=== PATIENT | female | born 1965 | race Caucasian/White ===

== ENCOUNTER 2020-12-18 10:13 | Emergency (ER) | payer MEDICARE, SELFPAY ==
[2020-12-18] VITALS (20 sets, daily range): BP systolic 92–138; BP diastolic 57–73; PULSE 71–91; RESP 18–24; TEMP 36.6; O2SAT 90–98; BMI 40.3
[2020-12-18 11:13] LABS: COVID19 -Nasal RAPID Negative (Negative)
--- NOTE | 2020-12-18 11:41 | DI.RAD.S_ITS ---
PROCEDURE: XR CHEST 1V INDICATIONS: dyspnea TECHNIQUE: One view of the chest was acquired. COMPARISON: None. FINDINGS: Surgical changes and devices: None. Lungs and pleura: No pleural effusions or pneumothorax. Consolidative opacity in the retrocardiac left lower lobe. There are patchy medial right lower lobe opacities. Mediastinum: Mediastinal contours appear normal. Heart size is normal. Bones and chest wall: No suspicious bony lesions. Overlying soft tissues appear unremarkable. IMPRESSION: Bibasilar patchy consolidative opacities suggestive of pneumonia, versus aspiration/atelectasis. If there is persistent clinical diagnostic uncertainty, continued surveillance with short interval radiographic followup after treatment is recommended. Dictated by: Spike De Luna M.D. on 12/18/2020 at 11:47 Approved by: Spike De Luna M.D. on 12/18/2020 at 11:49
[2020-12-18 12:16] LABS: Add Manual Diff / Slide Review NO; Basophils Absolute Auto 0 /uL (0-100); Basophils Percent Auto 0.6 % (0-2); Eosinophils Absolute Auto 200 /uL (0-450); Eosinophils Percent Auto 2.5 % (2-4); Hematocrit 44.5 % (36-46); Hemoglobin 14.4 g/dL (12.0-16.0); Lymphocytes Absolute Auto 2300 /uL (1100-4500); Lymphocytes Percent Auto 30.7 % (25-40); Mean Corpuscular HGB Conc 32.4 % (30-36); Mean Corpuscular Hemoglobin 30.4 PG (26-34); Mean Corpuscular Volume 93.8 fL (80-100); Monocytes Absolute Auto 400 /uL (0-900); Neutrophils Absolute Auto 4400 /uL (1500-7000); Neutrophils Percent Auto 60.2 % (50-75); Platelet Count 259 X10^3/uL (150-400); Red Blood Cell Count 4.75 X10^6/uL (4.0-5.2); Red Cell Distribution Width 14.2 % (11.6-14.8); White Blood Cell Count 7.4 X10^3/uL (4.5-11.0)
[2020-12-18 12:22] LABS: Alanine Aminotransferase 63 IU/L (<35); Albumin 4.3 g/dL (3.5-5.0); Albumin Globulin Ratio 1.4 (1.0-2.8); Alkaline Phosphatase 62 U/L (38-126); Aspartate Aminotransferase 57 IU/L (14-36); BUN Creatinine Ratio 23.8 (6-22); Bilirubin Total 0.3 mg/dL (0.2-1.3); Blood Urea Nitrogen 15 mg/dL (7-17); Calcium 11.1 mg/dL (8.4-10.2); Carbon Dioxide 26 mmol/L (22-32); Chloride 104 mmol/L (98-107); Estimated Glomerular Filt Rate > 60.0 mL/min (>60); Glucose 164 mg/dL (70-100); HEMOLYSIS 23 (0-50); Sodium 138 mmol/L (137-145); Total Protein 7.3 g/dL (6.3-8.2)
[2020-12-18 12:23] LABS: Lactate (Lactic Acid) 3.5 mmol/L (0.7-2.1)
[2020-12-18 12:38] LABS: Procalcitonin 0.05 ng/mL (<0.5)
[2020-12-18 12:53] LABS: NT-proBNP (BNP-Adult 18+) < 11 pg/mL (<125)
--- NOTE | 2020-12-18 13:20 | DI.CT.S_ITS ---
PROCEDURE: CT LUMBAR SPINE WO CON INDICATIONS: Trauma, pain TECHNIQUE: Noncontrast 3 mm thick sections acquired from the T12 level to the sacrum. Sagittal and coronal reformats were constructed. For radiation dose reduction, the following was used: automated exposure control. COMPARISON: None. FINDINGS: Image quality: Excellent. Bones: There is normal bony alignment. No acute vertebral body compression fractures. No suspicious lytic or blastic bony lesions. No pars defects. At the disc spaces, there is degenerative disc disease and arthropathy at L3-4, L4-5 and L5-S1 resulting in moderate central stenosis at L4-5 and L5-S1 as well as effacement of the left lateral recess at L5-S1. Hypertrophic facet joints results in moderate bilateral L5-S1 foraminal stenosis. Soft tissues: No retroperitoneal masses or hematomas. Visualized aorta is normal in caliber. IMPRESSION: 1. No evidence of fracture or traumatic malalignment. 2. Multilevel degenerative disc disease and arthropathy results in moderate central stenosis at L4-5 and L5-S1. Approved by: Rafita Engel M.D. on 12/18/2020 at 13:47
[2020-12-18 14:13] LABS: Reflexed Lactate in 2 Hours Y
[2020-12-18 14:28] LABS: RBC Urine None Seen (0-5/HPF)
[2020-12-18 14:36] LABS: Bacteria Urine Many (>30); Culture Indicated Urine Specimen Cultured; WBC Urine 10-30/HPF (0-5/HPF)
[2020-12-18] MEDS: SODIUM CHLORIDE 0.9% 500 ML 1000 ML IV (14:47)
--- NOTE | 2020-12-18 14:49 | ED.SOB ---
HPI - SOB/Dyspnea <Abhishek Vaughan PA-C - Last Filed: 12/19/20 12:01> General Chief Complaint: Shortness of Breath/Dyspnea Stated Complaint: difficulty breathing/tachypnea Time Seen by Provider: 12/18/20 10:29 Source: patient and EMS Mode of arrival: EMS Limitations: no limitations History of Present Illness HPI Narrative: Emeterio presents today with chief complaint of shortness of breath. She reports that she was in a phone appointment with her doctor's office who recommended that she come into the emergency department because she was sounding out of breath. Patient denies any significant shortness of breath, chest tightness, chest pain, unexpected weight changes, nausea, diaphoresis, decreased exercise capacity, or any other acute concerns or complaints at this time. She had a fall yesterday which caused her to fall onto her left knee and hip. She was seen at the urgent care in [place] yesterday. X-rays were done of her left knee, lumbar spine. Radiologist reported possible fracture at L4 level and recommended further imaging. Patient was calling her doctor his office today to try and schedule that imaging when the triage nurse recommended that she come here. Patient is vaccinated for COVID. She denies any known sick contacts. She denies any significant history of smoking or lung disease. She has no other acute concerns or complaints at this time. Related Data Allergies Allergy/AdvReac Type Severity Reaction Status Date / Time aspirin [From Fiorinal] Allergy Mild Verified 12/18/20 10:37 butalbital [From Fiorinal] Allergy Mild Verified 12/18/20 10:37 caffeine [From Fiorinal] Allergy Mild Verified 12/18/20 10:37 morphine Allergy Mild Verified 12/18/20 10:37 Review of Systems <Abhishek Vaughan PA-C - Last Filed: 12/19/20 12:01> Review of Systems Narrative: As per HPI Patient History <Abhishek Vaughan PA-C - Last Filed: 12/19/20 12:01> Medical History ADHD Bipolar 1 disorder Hyperlipidemia Hypertension Type 2 diabetes mellitus Surgical History No pertinent past surgical history Social History Smoking Status: Never smoker alcohol intake: current (rare) substance use type: does not use Smoking Status: Never smoker Substance Use Type: does not use Exam <Abhishek Vaughan PA-C - Last Filed: 12/19/20 12:01> Narrative Exam Narrative: Exam Narrative: Const General: cooperative, healthy appearing, comfortable, no acute distress, well developed and well groomed Nutritional Appearance: Elevated BMI Orientation: alert and oriented x3 HENMT Head: normal to inspection and atraumatic Ears: hearing grossly normal bilaterally Nose: external nose normal and nares normal Face and sinus: normal facial exam Neck Neck: normal visual inspection and supple Resp Effort & Inspection: normal respiratory effort, able to speak in complete sentences, no audible wheezes, not labored, no nasal flaring and no respiratory distress Neuro General: alert, oriented x3, gait normal, tone normal and moves all extremities Cognition: normal cognition Speech: speech normal Gait: normal gait Psych Appearance: grossly normal and well kempt Mental Status: mental status grossly normal Speech and Movement: speech and movement normal Mood: congruent mood Affect: normal affect Initial Vital Signs Initial Vital Signs: Vital Signs Temperature 97.9 F 12/18/20 10:20 Pulse Rate 91 H 12/18/20 10:20 Respiratory Rate 24 12/18/20 10:20 Blood Pressure 114/63 12/18/20 10:20 Pulse Oximetry 93 12/18/20 10:20 <Raquel Deal DO - Last Filed: 12/23/20 07:32> Initial Vital Signs Initial Vital Signs: Vital Signs Temperature 97.9 F 12/18/20 10:20 Pulse Rate 91 H 12/18/20 10:20 Respiratory Rate 24 12/18/20 10:20 Blood Pressure 114/63 12/18/20 10:20 Pulse Oximetry 93 12/18/20 10:20 Course <Abhishek Vaughan PA-C - Last Filed: 12/19/20 12:01> Orders Ordered: Discontinued Medications Azithromycin (Azithromycin 250 Mg Tablet) 500 mg PO NOW ONE Stop: 12/18/20 16:20 Last Admin: 12/18/20 16:41 Dose: 500 mg Documented by: GIRMA Sodium Chloride (Normal Saline 0.9%) 500 mls @ 1,000 mls/hr IV BOLUS ONE Stop: 12/18/20 15:12 Last Infusion: 12/18/20 15:13 Dose: 0 mls/hr Documented by: Admin: 12/18/20 14:47 Dose: 1,000 mls/hr Documented by: GIRMA Sodium Chloride (Normal Saline 0.9%) 1,000 mls @ 1,000 mls/hr IV BOLUS ONE Stop: 12/18/20 16:16 Last Infusion: 12/18/20 18:03 Dose: 0 mls/hr Documented by: Admin: 12/18/20 16:37 Dose: 1,000 mls/hr Documented by: GIRMA Ceftriaxone Sodium 2,000 mg/ (Sodium Chloride) 100 mls @ 200 mls/hr IV NOW ONE Stop: 12/18/20 15:39 Last Infusion: 12/18/20 16:39 Dose: 0 mls/hr Documented by: Admin: 12/18/20 16:07 Dose: 200 mls/hr Documented by: GIRMA Azithromycin 500 mg/ Dextrose 250 mls @ 250 mls/hr IV NOW ONE Stop: 12/18/20 15:39 Last Admin: 12/18/20 16:31 Dose: Not Given Documented by: GIRMA Ketorolac Tromethamine (Ketorolac 30 Mg/Ml Vial) 30 mg IV NOW ONE Stop: 12/18/20 15:49 Last Admin: 12/18/20 16:07 Dose: 30 mg Documented by: GIRMA Vital Signs Vital signs: Vital Signs - 8 hr 12/18/20 11:30 12/18/20 12:00 12/18/20 12:30 Pulse Rate 81 81 75 Respiratory Rate Blood Pressure 120/59 L 103/58 L 115/63 Pulse Oximetry 94 96 96 12/18/20 12:51 12/18/20 13:00 12/18/20 14:20 Pulse Rate 78 76 79 Respiratory Rate Blood Pressure 105/65 106/66 Pulse Oximetry 97 96 93 12/18/20 14:30 12/18/20 15:00 12/18/20 15:30 Pulse Rate 77 77 71 Respiratory Rate Blood Pressure 92/59 L 117/71 Pulse Oximetry 91 90 L 98 12/18/20 15:31 12/18/20 16:00 12/18/20 16:29 Pulse Rate 72 78 90 Respiratory Rate Blood Pressure 122/63 121/67 134/68 Pulse Oximetry 95 94 96 12/18/20 16:30 12/18/20 17:39 12/18/20 17:40 Pulse Rate 78 84 81 Respiratory Rate Blood Pressure 136/73 Pulse Oximetry 97 95 96 12/18/20 18:00 12/18/20 18:30 Pulse Rate 80 79 Respiratory Rate 18 18 Blood Pressure 136/73 138/67 Pulse Oximetry 93 94 <Raquel Deal, DO - Last Filed: 12/23/20 07:32> Orders Ordered: Discontinued Medications Azithromycin (Azithromycin 250 Mg Tablet) 500 mg PO NOW ONE Stop: 12/18/20 16:20 Last Admin: 12/18/20 16:41 Dose: 500 mg Documented by: GIRMA Sodium Chloride (Normal Saline 0.9%) 500 mls @ 1,000 mls/hr IV BOLUS ONE Stop: 12/18/20 15:12 Last Infusion: 12/18/20 15:13 Dose: 0 mls/hr Documented by: Admin: 12/18/20 14:47 Dose: 1,000 mls/hr Documented by: GIRMA Sodium Chloride (Normal Saline 0.9%) 1,000 mls @ 1,000 mls/hr IV BOLUS ONE Stop: 12/18/20 16:16 Last Infusion: 12/18/20 18:03 Dose: 0 mls/hr Documented by: Admin: 12/18/20 16:37 Dose: 1,000 mls/hr Documented by: GIRMA Ceftriaxone Sodium 2,000 mg/ (Sodium Chloride) 100 mls @ 200 mls/hr IV NOW ONE Stop: 12/18/20 15:39 Last Infusion: 12/18/20 16:39 Dose: 0 mls/hr Documented by: Admin: 12/18/20 16:07 Dose: 200 mls/hr Documented by: GIRMA Azithromycin 500 mg/ Dextrose 250 mls @ 250 mls/hr IV NOW ONE Stop: 12/18/20 15:39 Last Admin: 12/18/20 16:31 Dose: Not Given Documented by: GIRMA Ketorolac Tromethamine (Ketorolac 30 Mg/Ml Vial) 30 mg IV NOW ONE Stop: 12/18/20 15:49 Last Admin: 12/18/20 16:07 Dose: 30 mg Documented by: GIRMA Vital Signs Vital signs: Vital Signs - 8 hr 12/18/20 11:30 12/18/20 12:00 12/18/20 12:30 Pulse Rate 81 81 75 Respiratory Rate Blood Pressure 120/59 L 103/58 L 115/63 Pulse Oximetry 94 96 96 12/18/20 12:51 12/18/20 13:00 12/18/20 14:20 Pulse Rate 78 76 79 Respiratory Rate Blood Pressure 105/65 106/66 Pulse Oximetry 97 96 93 12/18/20 14:30 12/18/20 15:00 12/18/20 15:30 Pulse Rate 77 77 71 Respiratory Rate Blood Pressure 92/59 L 117/71 Pulse Oximetry 91 90 L 98 12/18/20 15:31 12/18/20 16:00 12/18/20 16:29 Pulse Rate 72 78 90 Respiratory Rate Blood Pressure 122/63 121/67 134/68 Pulse Oximetry 95 94 96 12/18/20 16:30 12/18/20 17:39 12/18/20 17:40 Pulse Rate 78 84 81 Respiratory Rate Blood Pressure 136/73 Pulse Oximetry 97 95 96 12/18/20 18:00 12/18/20 18:30 Pulse Rate 80 79 Respiratory Rate 18 18 Blood Pressure 136/73 138/67 Pulse Oximetry 93 94 MDM - SOB/Dyspnea <Abhishek Vaughan PA-C - Last Filed: 12/19/20 12:01> Lab Data Result diagrams: 12/18/20 12:00 12/18/20 12:00 Labs: Lab Results 12/18/20 12/18/20 12/18/20 Range/Units 10:26 10:36 12:00 WBC 7.4 (4.5-11.0) X10^3/uL RBC 4.75 (4.0-5.2) X10^6/uL Hgb 14.4 (12.0-16.0) g/dL Hct 44.5 (36-46) % MCV 93.8 (80-100) fL MCH 30.4 (26-34) PG MCHC 32.4 (30-36) % RDW 14.2 (11.6-14.8) % Plt Count 259 (150-400) X10^3/uL Neut % (Auto) 60.2 (50-75) % Lymph % (Auto) 30.7 (25-40) % [place] % (Auto) 6.0 (3-14) % Eos % (Auto) 2.5 (2-4) % Baso % (Auto) 0.6 (0-2) % Neut # (Auto) 4400 (2214-0575) /uL Lymph # (Auto) 2300 (8835-8497) /uL [place] # (Auto) 400 (0-900) /uL Eos # (Auto) 200 (0-450) /uL Baso # (Auto) 0 (0-100) /uL Sodium (137-145) mmol/L Potassium (3.4-5.1) mmol/L Chloride (98-107) mmol/L Carbon Dioxide (22-32) mmol/L BUN (7-17) mg/dL Creatinine (0.52-1.04) mg/dL Estimated GFR (>60) mL/min BUN/Creatinine Ratio (6-22) Glucose (70-100) mg/dL Lactate (0.7-2.1) mmol/L Calcium (8.4-10.2) mg/dL Total Bilirubin (0.2-1.3) mg/dL AST (14-36) IU/L ALT (<35) IU/L Alkaline Phosphatase (38-126) U/L NT-Pro-B Natriuret Pep < 11 (<125) pg/mL Total Protein (6.3-8.2) g/dL Albumin (3.5-5.0) g/dL Globulin (1.7-4.1) g/dL Albumin/Globulin Ratio (1.0-2.8) Procalcitonin (<0.5) ng/mL Urine RBC (0-5/HPF) Urine WBC (0-5/HPF) Urine Bacteria (None) Ur Culture Indicated? SARS-CoV-2 (PCR) Negative (Negative) 12/18/20 12/18/20 12/18/20 Range/Units 12:00 12:00 12:00 WBC (4.5-11.0) X10^3/uL RBC (4.0-5.2) X10^6/uL Hgb (12.0-16.0) g/dL Hct (36-46) % MCV (80-100) fL MCH (26-34) PG MCHC (30-36) % RDW (11.6-14.8) % Plt Count (150-400) X10^3/uL Neut % (Auto) (50-75) % Lymph % (Auto) (25-40) % [place] % (Auto) (3-14) % Eos % (Auto) (2-4) % Baso % (Auto) (0-2) % Neut # (Auto) (0025-0612) /uL Lymph # (Auto) (4695-1954) /uL [place] # (Auto) (0-900) /uL Eos # (Auto) (0-450) /uL Baso # (Auto) (0-100) /uL Sodium 138 (137-145) mmol/L Potassium 4.0 (3.4-5.1) mmol/L Chloride 104 (98-107) mmol/L Carbon Dioxide 26 (22-32) mmol/L BUN 15 (7-17) mg/dL Creatinine 0.63 (0.52-1.04) mg/dL Estimated GFR > 60.0 (>60) mL/min BUN/Creatinine Ratio 23.8 H (6-22) Glucose 164 H (70-100) mg/dL Lactate 3.5 H (0.7-2.1) mmol/L Calcium 11.1 H (8.4-10.2) mg/dL Total Bilirubin 0.3 (0.2-1.3) mg/dL AST 57 H (14-36) IU/L ALT 63 H (<35) IU/L Alkaline Phosphatase 62 (38-126) U/L NT-Pro-B Natriuret Pep (<125) pg/mL Total Protein 7.3 (6.3-8.2) g/dL Albumin 4.3 (3.5-5.0) g/dL Globulin 3.0 (1.7-4.1) g/dL Albumin/Globulin Ratio 1.4 (1.0-2.8) Procalcitonin 0.05 (<0.5) ng/mL Urine RBC (0-5/HPF) Urine WBC (0-5/HPF) Urine Bacteria (None) Ur Culture Indicated? SARS-CoV-2 (PCR) (Negative) 12/18/20 12/18/20 12/18/20 Range/Units 13:37 14:30 15:07 WBC (4.5-11.0) X10^3/uL RBC (4.0-5.2) X10^6/uL Hgb (12.0-16.0) g/dL Hct (36-46) % MCV (80-100) fL MCH (26-34) PG MCHC (30-36) % RDW (11.6-14.8) % Plt Count (150-400) X10^3/uL Neut % (Auto) (50-75) % Lymph % (Auto) (25-40) % [place] % (Auto) (3-14) % Eos % (Auto) (2-4) % Baso % (Auto) (0-2) % Neut # (Auto) (1512-7478) /uL Lymph # (Auto) (1222-6083) /uL [place] # (Auto) (0-900) /uL Eos # (Auto) (0-450) /uL Baso # (Auto) (0-100) /uL Sodium (137-145) mmol/L Potassium (3.4-5.1) mmol/L Chloride (98-107) mmol/L Carbon Dioxide (22-32) mmol/L BUN (7-17) mg/dL Creatinine (0.52-1.04) mg/dL Estimated GFR (>60) mL/min BUN/Creatinine Ratio (6-22) Glucose (70-100) mg/dL Lactate 2.0 (0.7-2.1) mmol/L Calcium (8.4-10.2) mg/dL Total Bilirubin (0.2-1.3) mg/dL AST (14-36) IU/L ALT (<35) IU/L Alkaline Phosphatase (38-126) U/L NT-Pro-B Natriuret Pep (<125) pg/mL Total Protein (6.3-8.2) g/dL Albumin (3.5-5.0) g/dL Globulin (1.7-4.1) g/dL Albumin/Globulin Ratio (1.0-2.8) Procalcitonin (<0.5) ng/mL Urine RBC None seen (0-5/HPF) Urine WBC 10-30/hpf H (0-5/HPF) Urine Bacteria Many (>30) H (None) Ur Culture Indicated? Specimen cultured SARS-CoV-2 (PCR) Negative (Negative) Urine Dip Bedside Urine Glucose Negative Bedside Urine Bilirubin - Negative Bedside Urine Ketone - Negative Urine Specific Kelly 1.020 Bedside Urine Occult Blood - Negative Bedside Urine pH 6 Bedside Urine Protein - Negative Bedside Urine Urobilinogen - Negative Bedside Urine Nitrite - Negative Bedside Urine Leukocytes ++ 125 Esterase MDM Narrative Medical decision making narrative: Patient had an elevated lactic and has a lower a normal oxygen saturation. She does not have any other significant signs or symptoms that would suggest septic infection. She has evidence of bilateral pneumonia with COVID negative PCR and a urine that is concerning for urinary tract infection. After discussing her positive urine results she did admit to increased frequency of urination, burning with urination and increased urgency to urinate over the last 3 days. I discussed with the pharmacist with the best antibiotic choice would be to treat both and levofloxacin was chosen. Risks of a fluoroquinolone was discussed with the patient. She has history of peripheral neuropathy and takes gabapentin but this still is likely the best antibiotic for her. I spoke with the hospitalist and he suggested outpatient management versus inpatient management. Patient is ambulatory without significant difficulty and takes p.o. without difficulty. She has a roommate that she is staying with and reports that she feels safe to go home. Strict return precautions were discussed. Patient verbalizes understanding and agrees to plan and has no further concerns at this time. Thank you A [id number] system was used with the dictation of this note. Please disregard any spelling or grammatical errors. <Raquel Deal, DO - Last Filed: 12/23/20 07:32> Lab Data Labs: Lab Results 12/18/20 12/18/20 12/18/20 Range/Units 10:26 10:36 12:00 WBC 7.4 (4.5-11.0) X10^3/uL RBC 4.75 (4.0-5.2) X10^6/uL Hgb 14.4 (12.0-16.0) g/dL Hct 44.5 (36-46) % MCV 93.8 (80-100) fL MCH 30.4 (26-34) PG MCHC 32.4 (30-36) % RDW 14.2 (11.6-14.8) % Plt Count 259 (150-400) X10^3/uL Neut % (Auto) 60.2 (50-75) % Lymph % (Auto) 30.7 (25-40) % [place] % (Auto) 6.0 (3-14) % Eos % (Auto) 2.5 (2-4) % Baso % (Auto) 0.6 (0-2) % Neut # (Auto) 4400 (1339-0106) /uL Lymph # (Auto) 2300 (1168-2837) /uL [place] # (Auto) 400 (0-900) /uL Eos # (Auto) 200 (0-450) /uL Baso # (Auto) 0 (0-100) /uL Sodium (137-145) mmol/L Potassium (3.4-5.1) mmol/L Chloride (98-107) mmol/L Carbon Dioxide (22-32) mmol/L BUN (7-17) mg/dL Creatinine (0.52-1.04) mg/dL Estimated GFR (>60) mL/min BUN/Creatinine Ratio (6-22) Glucose (70-100) mg/dL Lactate (0.7-2.1) mmol/L Calcium (8.4-10.2) mg/dL Total Bilirubin (0.2-1.3) mg/dL AST (14-36) IU/L ALT (<35) IU/L Alkaline Phosphatase (38-126) U/L NT-Pro-B Natriuret Pep < 11 (<125) pg/mL Total Protein (6.3-8.2) g/dL Albumin (3.5-5.0) g/dL Globulin (1.7-4.1) g/dL Albumin/Globulin Ratio (1.0-2.8) Procalcitonin (<0.5) ng/mL Urine RBC (0-5/HPF) Urine WBC (0-5/HPF) Urine Bacteria (None) Ur Culture Indicated? SARS-CoV-2 (PCR) Negative (Negative) 12/18/20 12/18/20 12/18/20 Range/Units 12:00 12:00 12:00 WBC (4.5-11.0) X10^3/uL RBC (4.0-5.2) X10^6/uL Hgb (12.0-16.0) g/dL Hct (36-46) % MCV (80-100) fL MCH (26-34) PG MCHC (30-36) % RDW (11.6-14.8) % Plt Count (150-400) X10^3/uL Neut % (Auto) (50-75) % Lymph % (Auto) (25-40) % [place] % (Auto) (3-14) % Eos % (Auto) (2-4) % Baso % (Auto) (0-2) % Neut # (Auto) (5832-1149) /uL Lymph # (Auto) (5890-5742) /uL [place] # (Auto) (0-900) /uL Eos # (Auto) (0-450) /uL Baso # (Auto) (0-100) /uL Sodium 138 (137-145) mmol/L Potassium 4.0 (3.4-5.1) mmol/L Chloride 104 (98-107) mmol/L Carbon Dioxide 26 (22-32) mmol/L BUN 15 (7-17) mg/dL Creatinine 0.63 (0.52-1.04) mg/dL Estimated GFR > 60.0 (>60) mL/min BUN/Creatinine Ratio 23.8 H (6-22) Glucose 164 H (70-100) mg/dL Lactate 3.5 H (0.7-2.1) mmol/L Calcium 11.1 H (8.4-10.2) mg/dL Total Bilirubin 0.3 (0.2-1.3) mg/dL AST 57 H (14-36) IU/L ALT 63 H (<35) IU/L Alkaline Phosphatase 62 (38-126) U/L NT-Pro-B Natriuret Pep (<125) pg/mL Total Protein 7.3 (6.3-8.2) g/dL Albumin 4.3 (3.5-5.0) g/dL Globulin 3.0 (1.7-4.1) g/dL Albumin/Globulin Ratio 1.4 (1.0-2.8) Procalcitonin 0.05 (<0.5) ng/mL Urine RBC (0-5/HPF) Urine WBC (0-5/HPF) Urine Bacteria (None) Ur Culture Indicated? SARS-CoV-2 (PCR) (Negative) 12/18/20 12/18/20 12/18/20 Range/Units 13:37 14:30 15:07 WBC (4.5-11.0) X10^3/uL RBC (4.0-5.2) X10^6/uL Hgb (12.0-16.0) g/dL Hct (36-46) % MCV (80-100) fL MCH (26-34) PG MCHC (30-36) % RDW (11.6-14.8) % Plt Count (150-400) X10^3/uL Neut % (Auto) (50-75) % Lymph % (Auto) (25-40) % [place] % (Auto) (3-14) % Eos % (Auto) (2-4) % Baso % (Auto) (0-2) % Neut # (Auto) (1690-9218) /uL Lymph # (Auto) (9676-4714) /uL [place] # (Auto) (0-900) /uL Eos # (Auto) (0-450) /uL Baso # (Auto) (0-100) /uL Sodium (137-145) mmol/L Potassium (3.4-5.1) mmol/L Chloride (98-107) mmol/L Carbon Dioxide (22-32) mmol/L BUN (7-17) mg/dL Creatinine (0.52-1.04) mg/dL Estimated GFR (>60) mL/min BUN/Creatinine Ratio (6-22) Glucose (70-100) mg/dL Lactate 2.0 (0.7-2.1) mmol/L Calcium (8.4-10.2) mg/dL Total Bilirubin (0.2-1.3) mg/dL AST (14-36) IU/L ALT (<35) IU/L Alkaline Phosphatase (38-126) U/L NT-Pro-B Natriuret Pep (<125) pg/mL Total Protein (6.3-8.2) g/dL Albumin (3.5-5.0) g/dL Globulin (1.7-4.1) g/dL Albumin/Globulin Ratio (1.0-2.8) Procalcitonin (<0.5) ng/mL Urine RBC None seen (0-5/HPF) Urine WBC 10-30/hpf H (0-5/HPF) Urine Bacteria Many (>30) H (None) Ur Culture Indicated? Specimen cultured SARS-CoV-2 (PCR) Negative (Negative) Urine Dip Bedside Urine Glucose Negative Bedside Urine Bilirubin - Negative Bedside Urine Ketone - Negative Urine Specific Kelly 1.020 Bedside Urine Occult Blood - Negative Bedside Urine pH 6 Bedside Urine Protein - Negative Bedside Urine Urobilinogen - Negative Bedside Urine Nitrite - Negative Bedside Urine Leukocytes ++ 125 Esterase Discharge Plan Departure Patient Disposition: Home Clinical Impression: Community acquired pneumonia Qualifiers: Laterality: unspecified laterality Qualified Code(s): J18.9 - Pneumonia, unspecified organism Acute cystitis Qualifiers: Hematuria presence: with hematuria Qualified Code(s): N30.01 - Acute cystitis with hematuria Instructions: Atypical Pneumonia, DI for Urinary Tract Infection (UTI) Activity Restrictions/Additional Instructions: It was nice to meet you this afternoon. Please take the antibiotic for both your pneumonia and urinary tract infection. I expect your symptoms to improve over the next few days. If you experience worsening shortness of breath, fever, chest or have any additional concerns or complaints do not hesitate to return for re-evaluation. Thank you Abhishek Vaughan PA-C Referrals: Lupis Helms, [employer]- [Primary Care Provider] - Stand Alone Forms: Work Release Note <Raquel Deal DO - Last Filed: 12/23/20 07:32> Cosign ED Attending Aye Attestation: I was immediately available in the department for consultation. Documentation has been reviewed. Case was discussed. Prior to 2nd lactate there was discussion about possible hospitalization with an O2 sat 90% hospitalist was consulted. And patient has what appears to be bacterial pneumonia with negative COVID. Repeat lactate has improved. Patient's vitals have never dipped below 90% for her oxygen saturation. Hospitalist does not except as patient can tolerate orals does not appear to have severe sepsis otherwise. Strict return precautions.
[2020-12-18] MEDS: KETOROLAC 30 MG/ML VIAL IV (16:07)
[2020-12-18] MEDS: cefTRIAXone 2,000 MG in SODIUM CHLORIDE 0.9% 100 ML 200 ML IV (16:07)
[2020-12-18 16:08] LABS: COVID19 - ADMIT (NP swab/PCR) Negative (Negative)
--- NOTE | 2020-12-18 16:30 | PC.NURSE ---
ambulation trial oxygen saturation 93% with ambulation
[2020-12-18] MEDS: SODIUM CHLORIDE 0.9% 1,000 ML 1000 ML IV (16:37)
[2020-12-18] MEDS: AZITHROMYCIN 250 MG TABLET 500 MG PO (16:41)
--- NOTE | 2020-12-18 17:00 | PM.CN ---
History of Present Illness Consult details Date Patient Seen: 12/18/20 Time Patient Seen: 16:50 Chief complaint: difficulty breathing/tachypnea Narrative: This is a 55-year-old female with a past medical history of hypertension, hyperlipidemia, bipolar disorder, ADHD, type 2 diabetes on insulin who was referred to the emergency room after she called her physician for continued low back pain who noted that the patient was short of breath on the phone. Patient states that she did not really notice that she was having trouble breathing until this was mentioned to her. She states she has felt this way for about a week now. She denies any fevers or chills. She has had a productive cough of minimal sputum, she does not recall what her sputum look like also for about the past week. She denies any recent travel or sick contacts. She denies any hemoptysis. She denies any abdominal pain, nausea, vomiting. She has had dysuria and urinary frequency. She also thought recently that she had a UTI. In the emergency room, the patient was afebrile, and her vital signs were largely unremarkable. She had a single isolated O2 saturation of 90% and medicine was called to evaluate for possible admission. During my evaluation the patient was saturating at 97%, appeared comfortable, and with ambulation O2 saturations remained in the mid 90s. Her psi and curb 65 score is are both low and she can be safely managed as an outpatient at this time. No relevant past family history Meds Home Medications and Allergies Home Medications Medication Instructions Recorded Confirmed Type levofloxacin 500 mg tablet 500 mg PO DAILY 5 Days #5 tab 12/18/20 Rx Allergies Allergy/AdvReac Type Severity Reaction Status Date / Time aspirin [From Fiorinal] Allergy Mild Verified 12/18/20 10:37 butalbital [From Fiorinal] Allergy Mild Verified 12/18/20 10:37 caffeine [From Fiorinal] Allergy Mild Verified 12/18/20 10:37 morphine Allergy Mild Verified 12/18/20 10:37 Review of Systems Review of Systems Narrative: All other systems reviewed with the patient and are negative unless otherwise stated. Exam Vital Signs (past 8 hours): - 12/18/20 10:20 12/18/20 10:30 12/18/20 11:00 Temperature 97.9 F Pulse Rate 91 H 87 85 Respiratory Rate 24 Blood Pressure 114/63 120/57 L 117/68 Pulse Oximetry 93 94 93 12/18/20 11:30 12/18/20 12:00 12/18/20 12:30 Temperature Pulse Rate 81 81 75 Respiratory Rate Blood Pressure 120/59 L 103/58 L 115/63 Pulse Oximetry 94 96 96 12/18/20 12:51 12/18/20 13:00 12/18/20 14:20 Temperature Pulse Rate 78 76 79 Respiratory Rate Blood Pressure 105/65 106/66 Pulse Oximetry 97 96 93 12/18/20 14:30 12/18/20 15:00 12/18/20 15:30 Temperature Pulse Rate 77 77 71 Respiratory Rate Blood Pressure 92/59 L 117/71 Pulse Oximetry 91 90 L 98 12/18/20 15:31 12/18/20 16:00 12/18/20 16:29 Temperature Pulse Rate 72 78 90 Respiratory Rate Blood Pressure 122/63 121/67 134/68 Pulse Oximetry 95 94 96 12/18/20 16:30 Temperature Pulse Rate 78 Respiratory Rate Blood Pressure Pulse Oximetry 97 Oxygen Delivery Method Room Air Narrative Exam Narrative: GENERAL APPEARANCE: Well developed, well nourished, in no acute distress. SKIN: Inspection of the skin reveals no rashes, ulcerations or petechiae. HEENT: Normocephalic atraumatic, extraocular muscles are intact, oropharynx is clear and mucous membranes are moist, neck is supple without adenopathy NECK: Supple and symmetric. There was no thyroid enlargement, and no tenderness, or masses were felt. CHEST: Normal AP diameter and normal contour without any kyphoscoliosis. LUNGS: Auscultation of the lungs revealed no wheezes, rhonchi, or rales. CARDIOVASCULAR: There was a regular rate and rhythm without any murmurs, gallops, rubs. Peripheral pulses were 2+ and symmetric. ABDOMEN: Soft and nontender with normal bowel sounds. No ascites was noted. MUSCULOSKELETAL: There was no tenderness or effusions noted. Muscle strength and tone were normal. EXTREMITIES: No cyanosis, clubbing or edema. NEUROLOGIC: Alert and oriented x 3. Normal affect. Gait was normal. Strength is +5/5 in the Upper Extremities and Lower Extremities Bilaterally. Sensation to touch was normal. Objective ECG Impression: Normal sinus rhythm Imaging Chest x-ray: My impression: bilateral hazy opacities. Radiologist's impression: Bibasilar patchy consolidative opacities suggestive of pneumonia, versus aspiration/atelectasis. If there is persistent clinical diagnostic uncertainty, continued surveillance with short interval radiographic followup after treatment is recommended. Labs Result Diagrams: 12/18/20 12:00 12/18/20 12:00 Labs: Laboratory Results - last 24 hr 12/18/20 12/18/20 12/18/20 10:26 10:36 12:00 WBC 7.4 RBC 4.75 Hgb 14.4 Hct 44.5 MCV 93.8 MCH 30.4 MCHC 32.4 RDW 14.2 Plt Count 259 Neut % (Auto) 60.2 Lymph % (Auto) 30.7 Maverick % (Auto) 6.0 Eos % (Auto) 2.5 Baso % (Auto) 0.6 Neut # (Auto) 4400 Lymph # (Auto) 2300 Maverick # (Auto) 400 Eos # (Auto) 200 Baso # (Auto) 0 Sodium Potassium Chloride Carbon Dioxide BUN Creatinine Estimated GFR BUN/Creatinine Ratio Glucose Lactate Calcium Total Bilirubin AST ALT Alkaline Phosphatase NT-Pro-B Natriuret Pep < 11 Total Protein Albumin Globulin Albumin/Globulin Ratio Procalcitonin Urine RBC Urine WBC Urine Bacteria Ur Culture Indicated? SARS-CoV-2 (PCR) Negative 12/18/20 12/18/20 12/18/20 12:00 12:00 12:00 WBC RBC Hgb Hct MCV MCH MCHC RDW Plt Count Neut % (Auto) Lymph % (Auto) Maverick % (Auto) Eos % (Auto) Baso % (Auto) Neut # (Auto) Lymph # (Auto) Maverick # (Auto) Eos # (Auto) Baso # (Auto) Sodium 138 Potassium 4.0 Chloride 104 Carbon Dioxide 26 BUN 15 Creatinine 0.63 Estimated GFR > 60.0 BUN/Creatinine Ratio 23.8 H Glucose 164 H Lactate 3.5 H Calcium 11.1 H Total Bilirubin 0.3 AST 57 H ALT 63 H Alkaline Phosphatase 62 NT-Pro-B Natriuret Pep Total Protein 7.3 Albumin 4.3 Globulin 3.0 Albumin/Globulin Ratio 1.4 Procalcitonin 0.05 Urine RBC Urine WBC Urine Bacteria Ur Culture Indicated? SARS-CoV-2 (PCR) 12/18/20 12/18/20 12/18/20 13:37 14:30 15:07 WBC RBC Hgb Hct MCV MCH MCHC RDW Plt Count Neut % (Auto) Lymph % (Auto) Maverick % (Auto) Eos % (Auto) Baso % (Auto) Neut # (Auto) Lymph # (Auto) Maverick # (Auto) Eos # (Auto) Baso # (Auto) Sodium Potassium Chloride Carbon Dioxide BUN Creatinine Estimated GFR BUN/Creatinine Ratio Glucose Lactate 2.0 Calcium Total Bilirubin AST ALT Alkaline Phosphatase NT-Pro-B Natriuret Pep Total Protein Albumin Globulin Albumin/Globulin Ratio Procalcitonin Urine RBC None seen Urine WBC 10-30/hpf H Urine Bacteria Many (>30) H Ur Culture Indicated? Specimen cultured SARS-CoV-2 (PCR) Negative Assessment & Plan Assessment & Plan narrative: This is a 55-year-old female with a past medical history of hypertension, hyperlipidemia, bipolar disorder, ADHD, type 2 diabetes on insulin who was referred to the emergency room after she called her physician for continued low back pain who noted that the patient was short of breath on the phone. In the emergency room, the patient was afebrile, and her vital signs were largely unremarkable. She had a single isolated O2 saturation of 90% and medicine was called to evaluate for possible admission. During my evaluation the patient was saturating at 97%, appeared comfortable, and with ambulation O2 saturations remained in the mid 90s. Her psi (46) and curb 65 score is are both low and she can be safely managed as an outpatient at this time. Agree with discharge plan for her bilateral pneumonia and acute cystitis for discharge home on oral levaquin. Follow up with PCP. Patient was agreeable with discharge home. COVID-19 COVID-19 status: Negative
== END 2020-12-18 19:38 | disposition home or self-care (01) ==
PROVIDERS: Emergency Medicine; Emergency Provider Physician Assistant; PCP Registered Nurse General Practice
DX: J18.9 Pneumonia, unspecified organism (principal); N30.01 Acute cystitis with hematuria; R79.89 Other specified abnormal findings of blood chemistry; R06.02 Shortness of breath; Z20.822 Contact with and (suspected) exposure to COVID-19
CPT/HCPCS: 36415; 71045; 72131; 80053; 81003; 81015; 83605; 83880; 84145; 85025; 87077; 87086; 87186; 87635; 93005; 93010; 96361; 96365; 96375; 99284; C9803; J0696; J1885